=== PATIENT | male | born 1980 | race Caucasian/White ===

== ENCOUNTER 2019-08-05 04:53 | Emergency (ER) | payer MEDICAID, OTHER ==
[~2019-08-05] VITALS: Ht 172.7 cm; Wt 70.5 kg
--- NOTE | 2019-08-05 05:05 | NUR ---
POISION CONTROL CONTACTED BY DR SALMERON
--- NOTE | 2019-08-05 05:08 | NUR ---
PT REPORTS HE WAS GETTING PULLED OVER AND HE INGESTED A BAGGIE OF EITHER METH OR FENTANYL. HE STATES IT WAS IN A ZIPLOC BAG AND WAS .6 OR JUST OVER 1/2 A GRAM. CONTACTED POISON CONTROL AND SPOKE WITH STEVE WHO STATES THE FOLLOWING: WITH METH, EXPECT PT TO BE TACHY, HTN, AGITATED, ANXIOUS, PSYCHOSIS, SZ OR CARDIOTOXICITY. 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 THEY MENTIONED YOU CAN GET A FALSE NEGATIVE WITH CT. MININUM OBSERVATION OF 6HRS
[2019-08-05] MEDS ORDERED: PEG 3350/Na sulf,bicarb,Cl/KCl oral sol 4 liter bottle PO ONE (05:25)
[2019-08-05] MEDS ORDERED: charcoal, activated 50 GM/240 ML bottle PO ONE (05:25)
--- NOTE | 2019-08-05 05:31 | NUR ---
PT TO CT WITH ROICO KAMARA OFFICER AND MOLDER MACHINE PT ON HEART MONITOR
[2019-08-05] MEDS ORDERED: normal saline 1000ml 1,000 ML IV ONE (05:40)
[2019-08-05] MEDS ORDERED: LORazepam 2 mg/ml vial IV ONE (05:40)
--- NOTE | 2019-08-05 05:40 | NUR ---
PT BACK FROM CT
--- NOTE | 2019-08-05 05:47 | NUR ---
PT IV DRUG USER. DIFFICULT IV START. ASSSESSED FEET BOTH ARMS AND THE NECK .
--- NOTE | 2019-08-05 06:15 | NUR ---
ATTEMPTED TO START PT IV . HAVING DIFFICULTY FINDING A DECENT VEIN FOR IV START ROCIO KAMARA ATTEMPTED THREE STICKS OVER THE LAST [address] SALMERON AWARE.
--- NOTE | 2019-08-05 06:30 | NUR ---
ELISAE OF SHIFT REPORT GIVEN . PT REFUSING NG PLACEMENT AND CHARCOAL. PT ASKING TO [employer] LAW ENFORCEMENT AT BEDSIDE . EDUCATED PT ABOUT THE IMPORTANCE OF PALCING NG SO CHARCOAL CAN BE GIVEN TO PREVENT TOXIC CONSEQUENCES FROM INGESTION OF EITHER A BAG OF METH OR FENTYL . PT STILL REFUSING. NOTIFIED CHARGE NURSE
--- NOTE | 2019-08-05 06:45 | NUR ---
PT. IS REFUSING TO HAVE NG TUBE, CHARCOAL AND GO-LYTELY. PT. HAS BEEN TOLD ALL THE COMPLICATIONS THAT CAN OCCUR AND PT. IS STILL REFUSING. CHARGE NURSE AWARE AND MD IS AWARE OF THE SITUATION. PT. WOULD RATHER "LEAVE AGAINST MEDICAL ADVICE".
--- NOTE | 2019-08-05 06:54 | NUR ---
OFFICER CALLING HIS SUPERIOR REGARDING EITHER GETTING A WARRANT OR HAVING THE PT. SIT IN THE ER FOR OBSERVATION. PT. HAS TALKED TO THE MD AND PT. IS STILL REFUSING ANY CARE. SPOKE TO THE NURSE AND HER CONCERNS WERE HE IS TRYING TO KILL HIMSELF. PT. DENIES ANY SI'S OR TRYING TO HURT OTHERS, MD SHARP HAS EVALUATED AND AGREES HE IS NOT SUICIDAL IN ANY WAY. PT. CONTINUES TO DENY ANY CARE FROM US.
--- NOTE | 2019-08-05 07:03 | NUR ---
SPOKE TO THE OFFICER AND HIS SUPERIOR IS GOING TO LET HIM GO AND WALK. DR. SHARP IS IN THE ROOM EXPLAINING THE COMPLICATIONS. PT. IS GETTING MORE DIAPHORETIC, TACHYCARDIC, AND HYPERTENSIVE. PER THE OFFICER THERE ARE GOING TO LET HIM OFF THEIR CUSTOMY. WE WILL CONTINUE TO OBSERVE HIM.
--- NOTE | 2019-08-05 07:27 | NUR ---
OFFICER HAS RELEASED PT. FROM CUSTODY.
--- NOTE | 2019-08-05 08:07 | NUR ---
PT. IS RESTING IN BED. PT. IS STILL REFUSING ANY CARE. WILL CONTINUE TO OBSERVE. NOTIFIED MD SHARP ABOUT HIS STATUS AND HE WANTS US TO CONTINUE TO OBSERVE HIM.
[2019-08-05 08:57] VITALS: BP 155/92
--- NOTE | 2019-08-05 08:58 | NUR ---
PT. IS RESTING IN BED AND IS IN NO DISTRESS. DENIES ANY PAIN. WILL CONTINUE TO OBSERVE AND MONITOR PT.
--- NOTE | 2019-08-05 09:26 | NUR ---
SPOKE TO LEANA FROM POISON CONTROL AND INFORMED HER THAT PT. HAS BEEN REFUSING ALL CARE. INFORMED HER OF THE VS AND RESULTS OF CT. POISON CONTROL WILL CALL ALTER FOR AN UPDATE.
== END 2019-08-05 09:34 | disposition left against medical advice (07) ==
LOC: ER 04:54
DX: T18.8XXA Foreign body in other parts of alimentary tract, initial encounter (principal); F15.10 Other stimulant abuse, uncomplicated; F11.90 Opioid use, unspecified, uncomplicated; W50.0XXA Accidental hit or strike by another person, initial encounter; Y93.89 Activity, other specified; Y92.89 Other specified places as the place of occurrence of the external cause; Y99.8 Other external cause status
CPT/HCPCS: 74176; 99284